=== PATIENT | female | born 1965 | race Caucasian/White ===

== ENCOUNTER 2017-07-13 08:44 | Inpatient (IN) | payer SELFPAY ==
[~2017-07-13] VITALS: Ht 170.2 cm; Wt 54.9 kg
[~2017-07-13 08:44] MED LIST: LEVA750T PO
[2017-07-13 08:45] VITALS: BP 143/74; PULSE 84; RESP 18; TEMP 98.2; O2SAT 100
[2017-07-13] MEDS ORDERED: ONDANSETRON HCL 4 MG/2 ML VIAL IV PUSH ONE (09:00)
[2017-07-13] MEDS ORDERED: HYDROmorphone HCL PF 2 MG/ML VIAL IV PUSH ONE ×2 (09:00→11:00)
--- NOTE | 2017-07-13 09:08 | PD ---
HPI Chief Complaint: Musculoskeletal Complaint Time Seen by Provider: 08:49 Travel History International Travel<30 days: No Contact w/Intl Traveler<30days: No Traveled to known affect area: No History of Present Illness HPI This 52-year-old female is complaining of back pain. She arrives by [facility]. She says she is not able to walk due to the pain. Pain is located in the left sacroiliac area and goes down the leg. It is aggravated by any movement. The pain is severe. There is no history of trauma. The pain started Tuesday while she was cleaning her house. She is not aware of fever. She does have a history of IV drug abuse. She says she has not used IV drugs for the past month but says she has used them within 2 months. She was admitted to the hospital in December 2015 with sepsis. Cultures at that time were positive for E. coli of the source was thought to be the urine. She is currently having her period. It has been heavier than usual. She does have a history of heavy periods. She denies trouble urinating. She is not aware of fever PFSH Past Medical History Anemia: Yes Anxiety: Yes Depression: Yes Heart Rhythm Problems: Yes ("THEY SAID I HAVE A HEART MURMUR") Cancer: No Cardiovascular Problems: No High Cholesterol: No Chest Pain: No Congestive Heart Failure: No Diabetes: No Diminished Hearing: No Endocrine: No Gastrointestinal Disorders: No Genitourinary: Yes Herniated Disk: Yes (LUMBAR) Hypertension: No Immune Disorder: No Implanted Vascular Access Dvce: No Musculoskeletal: Yes (HERNIATED DISC, CHRONIC BACK ISSUES) Neurologic: No Psychiatric: Yes (PTSD) Reproductive: Yes Respiratory: No Integumentary: Yes (SCABIES) Immunizations Current: No ?: Not : 3 Para: 3 Past Surgical History Section: Yes (2003) Gynecologic Surgery: Yes (C SECTION 2003) Tonsillectomy: Yes Other Surgery: Yes Social History Alcohol Use: Yes ("OCCASIONALLY") Tobacco Use: No (QUIT AGE 22) Substance Use: Yes Allergies-Medications (Allergen,Severity, Reaction): Coded Allergies: acetaminophen (Unverified Allergy, Severe, SWELLING, 07/13/17) propoxyphene (Unverified Allergy, Severe, SWELLING, 07/13/17) Reported Meds & Prescriptions Reported Meds & Active Scripts Active Levaquin 750 Mg Tab (Levofloxacin) 750 Mg Tab 750 Mg PO DAILY 14 Days Review of Systems General / Constitutional: No: Fever, Chills Eyes: No: Diploplia, Blurred Vision HENT: No: Headaches, Vertigo Cardiovascular: No: Chest Pain or Discomfort, Palpitations Respiratory: No: Cough, Shortness of Breath Gastrointestinal: No: Nausea, Vomiting Genitourinary: No: Frequency Musculoskeletal: No: Myalgias, Arthralgias Skin: No Rash, No Itching Physical Exam Narrative GENERAL: Well-developed female complaining of severe pain. SKIN: Focused skin assessment warm/dry. HEAD: Atraumatic. Normocephalic. EYES: Pupils equal and round. No scleral icterus. No injection or drainage. ENT: No nasal bleeding or discharge. Mucous membranes pink and moist. NECK: Trachea midline. No JVD. CARDIOVASCULAR: Regular rate and rhythm. No murmur appreciated. RESPIRATORY: No accessory muscle use. Clear to auscultation. Breath sounds equal bilaterally. GASTROINTESTINAL: Abdomen soft, non-tender, nondistended. Hepatic and splenic margins not palpable. MUSCULOSKELETAL: No obvious deformities. No clubbing. No cyanosis. No edema. Tenderness in the left sacroiliac area. She has a left leg flexed. She has pain with movement of the leg. She has good strength in plantar dorsiflexion. Sensation of the feet is intact. Patellar reflexes are equal NEUROLOGICAL: Awake and alert. No obvious cranial nerve deficits. Motor grossly within normal limits. Normal speech. PSYCHIATRIC: Appropriate mood and affect; insight and judgment normal. Data Data Last Documented VS Vital Signs Date Time Temp Pulse Resp B/P (MAP) Pulse Ox O2 Delivery O2 Flow Rate FiO2 07/13/17 09:06 18 07/13/17 08:45 98.2 84 143/74 (97) 100 Orders Orders Electrocardiogram (07/13/17 08:59) Complete Blood Count With Diff (07/13/17 08:59) Comprehensive Metabolic Panel (07/13/17 08:59) Prothrombin Time / Inr (Pt) (07/13/17 08:59) Act Partial Throm Time (Ptt) (07/13/17 08:59) C-Reactive Protein (Crp) (07/13/17 08:59) Urinalysis - C+S If Indicated (07/13/17 08:59) Westergren Sedimentation Rate (07/13/17 08:59) Magnesium (Mg) (07/13/17 08:59) Drug Screen, Random Urine (07/13/17 08:59) Mri L Spine W&W/O Contrast (07/13/17 ) Sodium Chlor 0.9% 1000 Ml Inj (Ns 1000 M (07/13/17 09:00) Ondansetron Inj (Zofran Inj) (07/13/17 09:00) Hydromorphone Pf Inj (Dilaudid Pf Inj) (07/13/17 09:00) Blood Culture (07/13/17 08:59) Hydromorphone Pf Inj (Dilaudid Pf Inj) (07/13/17 11:00) Gadodiamide Pf Inj (Omniscan Pf Inj) (07/13/17 11:32) Urine Culture (07/13/17 12:07) Chest, Single Ap (07/13/17 12:37) Labs Laboratory Tests Test 07/13/17 09:40 07/13/17 12:07 White Blood Count 12.2 TH/MM3 Red Blood Count 4.28 MIL/MM3 Hemoglobin 8.0 GM/DL Hematocrit 25.5 % Mean Corpuscular Volume 59.5 FL Mean Corpuscular Hemoglobin 18.7 PG Mean Corpuscular Hemoglobin Concent 31.4 % Red Cell Distribution Width 18.4 % Platelet Count 239 TH/MM3 Mean Platelet Volume 7.3 FL Neutrophils (%) (Auto) 77.3 % Lymphocytes (%) (Auto) 12.9 % Monocytes (%) (Auto) 8.9 % Eosinophils (%) (Auto) 0.3 % Basophils (%) (Auto) 0.6 % Neutrophils # (Auto) 9.4 TH/MM3 Lymphocytes # (Auto) 1.6 TH/MM3 Monocytes # (Auto) 1.1 TH/MM3 Eosinophils # (Auto) 0.0 TH/MM3 Basophils # (Auto) 0.1 TH/MM3 CBC Comment AUTO DIFF Differential Comment AUTO DIFF CONFIRMED Ovalocytes 1+ Erythrocyte Sedimentation Rate 53 mm/hr Prothrombin Time 10.8 SEC Prothromb Time International Ratio 1.1 RATIO Activated Partial Thromboplast Time 28.7 SEC Blood Urea Nitrogen 16 MG/DL Creatinine 0.60 MG/DL Random Glucose 93 MG/DL Total Protein 8.2 GM/DL Albumin 3.5 GM/DL Calcium Level 8.7 MG/DL Magnesium Level 2.0 MG/DL Alkaline Phosphatase 127 U/L Aspartate Amino Transf (AST/SGOT) 27 U/L Alanine Aminotransferase (ALT/SGPT) 23 U/L Total Bilirubin 0.4 MG/DL Sodium Level 136 MEQ/L Potassium Level 3.6 MEQ/L Chloride Level 103 MEQ/L Carbon Dioxide Level 21.3 MEQ/L Anion Gap 12 MEQ/L Estimat Glomerular Filtration Rate 105 ML/MIN C-Reactive Protein 9.44 MG/DL Urine Collection Type CLEAN CATCH Urine Color KENNETH Urine Turbidity SLIGHT Urine pH 7.0 Urine Specific [place] 1.026 Urine Protein 300 OR GREATER mg/dL Urine Glucose (UA) NEG mg/dL Urine Ketones 15 mg/dL Urine Occult Blood LARGE Urine Nitrite POS Urine Bilirubin NEG Urine Leukocyte Esterase NEG Urine RBC 20-24 /hpf Urine WBC 3-5 /hpf Urine Squamous Epithelial Cells 0-5 /hpf Urine Bacteria MANY /hpf Microscopic Urinalysis Comment CULTURE INDICATED Urine Collection Time 12:07 Urine Opiates Screen NEG Urine Barbiturates Screen NEG Urine Amphetamines Screen POS Urine Benzodiazepines Screen NEG Urine Cocaine Screen POS Urine Cannabinoids Screen NEG MDM Medical Decision Making Medical Screen Exam Complete: Yes Emergency Medical Condition: Yes Medical Record Reviewed: Yes Differential Diagnosis Differential includes spinal epidural abscess, herniated disc, exacerbation of back pain Narrative Course Patient does have history of IV drug abuse initially denied recent use. Her tox screen is positive for cocaine and amphetamines. Her hemoglobin is 8 with a white count of 12.2. Sed rate is 53 with a CRP of 9.4. Urine shows 20-24 white cells. An MRI was done to assess for possible epidural abscess and has been read as negative. There is no evidence of osteomyelitis, destructive bone lesions, disc herniation stenosis or foraminal. MRI appears to be allowed infectious cause of the pain. She is an IV drug user with elevation of her sed rate and CRP. Blood cultures are pending. I think admission pending results of cultures to assess for possible endocarditis Is warranted Diagnosis Primary Impression: Elevated sed rate Additional Impression: Rule out endocarditis Admitting Information Admitting Physician Requests: Observation Aneesh Scott MD Jul 13, 2017 09:08
[2017-07-13] MEDS: SODIUM CHLOR 0.9% 1000 ML INJ 1,000 ML IV SCH ×2 (09:43→20:40)
[2017-07-13 09:48] LABS: AUTOMATED NEUTROPHIL # 9.4 TH/MM3 (1.8-7.7); BASOPHIL # 0.1 TH/MM3 (0-0.2); BASOPHIL % 0.6 % (0.0-2.0); EOSINOPHIL % 0.3 % (0.0-4.0); HEMATOCRIT 25.5 % (35.0-46.0); LYMPH % 12.9 % (9.0-44.0); LYMPHOCYTE # 1.6 TH/MM3 (1.0-4.8); MEAN CELL VOLUME 59.5 FL (80.0-100.0); MEAN CORPUSCULAR HEMOGLOBIN 18.7 PG (27.0-34.0); MEAN CORPUSCULAR HGB CONC 31.4 % (32.0-36.0); MEAN PLATELET VOLUME 7.3 FL (7.0-11.0); MONO % 8.9 % (0.0-8.0); MONOCYTE # 1.1 TH/MM3 (0-0.9); NEUT % 77.3 % (16.0-70.0); PLATELET COUNT 239 TH/MM3 (150-450); RED BLOOD COUNT 4.28 MIL/MM3 (4.00-5.30); RED CELL DISTRIBUTION WIDTH 18.4 % (11.6-17.2); WHITE BLOOD COUNT 12.2 TH/MM3 (4.0-11.0)
[2017-07-13 10:04] LABS: INTERNATIONAL NORMALIZED RATIO 1.1 RATIO; PROTHROMBIN TIME - PATIENT 10.8 SEC (9.8-11.6)
[2017-07-13 10:25] LABS: CHLORIDE 103 MEQ/L (98-107); SODIUM (NA) 136 MEQ/L (136-145)
[2017-07-13 10:27] LABS: ALBUMIN 3.5 GM/DL (3.4-5.0); BICARBONATE 21.3 MEQ/L (21.0-32.0); CALCIUM 8.7 MG/DL (8.5-10.1)
[2017-07-13 10:28] LABS: GLUCOSE,RANDOM 93 MG/DL (74-106)
[2017-07-13 10:31] LABS: C-REACTIVE PROTEIN 9.44 MG/DL (0.00-0.30); GLOMERULAR FILTRATION RATE 105 ML/MIN (>89)
[2017-07-13 10:32] LABS: ALT (GPT) 23 U/L (10-53); TOTAL BILIRUBIN ADULT 0.4 MG/DL (0.2-1.0); TOTAL PROTEIN 8.2 GM/DL (6.4-8.2)
[2017-07-13 10:33] LABS: ALKALINE PHOSPHATASE 127 U/L (45-117)
[2017-07-13 10:40] LABS: AST (GOT) 27 U/L (15-37)
[2017-07-13 10:41] LABS: BLOOD UREA NITROGEN 16 MG/DL (7-18)
[2017-07-13 11:10] LABS: OVALOCYTES 1+ (NORMAL)
[2017-07-13] MEDS ORDERED: GADODIAMIDE PF 287 MG/ML 10 ML VIAL (for RAD MRI) IVCONTRAST ONE (11:32)
--- NOTE | 2017-07-13 12:08 | RADRPT ---
EXAM DATE/TIME: 07/13/2017 10:59 [facility] COMPARISON: No previous studies available for comparison. INDICATIONS : Osteomyelitis. Back pain radiating to left leg. CONTRAST: 10 cc Omniscan (gadodiamide) IV MEDICAL HISTORY : IVDU. SURGICAL HISTORY : section. ENCOUNTER: Subsequent ACUITY: 3 day PAIN SCORE: 10/10 LOCATION: back. TECHNIQUE: Multiplanar multisequence MRI of the lumbar spine was performed with and without contrast. FINDINGS: The most caudal appearing lumbar vertebra is numbered as L5. VERTEBRAE: Homogeneous signal. Mild anterolisthesis is noted of L3 on L4. Moderate hypertrophic facet arthropath y is identified at L3-4. No other significant arthropathy or malalignment is noted. CONUS: Normal level and configuration. POST CONTRAST: No abnormal areas of contrast enhancement are seen. T12-L1: The thecal sac has a normal diameter. No evidence of disc bulge or protrusion. The neural foramina are patent bilaterally. L1-L2: The thecal sac has a normal diameter. No evidence of disc bulge or protrusion. The neural foramina are patent bilaterally. L2-L3: Mild disc space narrowing with minimal annular bulging is noted. L3-L4: The thecal sac has a normal diameter. No evidence of disc bulge or protrusion. The neural foramina are patent bilaterally. L4-L5: The thecal sac has a normal diameter. No evidence of disc bulge or protrusion. The neural foramina are patent bilaterally. L5-S1: The thecal sac has a normal diameter. No evidence of disc bulge or protrusion. The neural foramina are patent bilaterally. CONCLUSION: 1. Mild degenerative listhesis at L3-4 secondary to facet arthropathy. 2. Minimal degenerative disc disease at L3-4 with mild annular bulging. 3. Otherwise normal unenhanced and enhanced evaluation of the lumbar spine. No evidence of osteomyeli tis, destructive bone lesions, disc herniation, bony stenosis or foraminal encroachment. Narayan Rivera MD on July 13, 2017 at 12:03 Board Certified Radiologist. This report was verified electronically.
[2017-07-13 12:16] LABS: BLOOD, URINE LARGE (NEG); GLUCOSE,URINE NEG (NEG); KETONE, URINE 15 mg/dL (NEG); NITRITE,URINE POS (NEG); URINE LEUKOCYTE ESTERASE NEG (NEG)
[2017-07-13 12:21] LABS: BILIRUBIN, URINE NEG (NEG)
[2017-07-13 12:22] LABS: URINE COLOR AMBER (YELLW/STRAW)
[2017-07-13 12:23] LABS: BACTERIA, URINE MANY /hpf; SQUAMOUS EPITHELIAL CELL URINE 0-5 /hpf (0-5)
--- NOTE | 2017-07-13 12:55 | RADRPT ---
EXAM DATE/TIME: 07/13/2017 12:38 [facility] COMPARISON: No previous studies available for comparison. INDICATIONS : Fever MEDICAL HISTORY : IVDU SURGICAL HISTORY : section. ENCOUNTER: Initial ACUITY: 1 day PAIN SCORE: 0/10 LOCATION: Bilateral chest FINDINGS: Portable AP view of the chest demonstrates a normal-sized cardiac silhouette with prominent main pulm onary artery. No pleural effusion, airspace consolidation, or pneumothorax is identified. The bones a nd soft tissues demonstrate no acute finding. CONCLUSION: No acute cardiopulmonary abnormality is identified. Saleem Beckwith MD on July 13, 2017 at 12:53 Board Certified Radiologist. This report was verified electronically.
[2017-07-13] MEDS ORDERED: VANCOMYCIN INJ 750 MG in SODIUM CHLOR 0.9% 250 ML INJ 250 ML IV ONE (13:15)
[2017-07-13] MEDS ORDERED: PIPERACIL-TAZO 4.5 GM PREMIX 100 ML IV ONE (13:15)
[2017-07-13 13:40] VITALS: BP 134/74; PULSE 90; RESP 20; TEMP 99.2; O2SAT 100
[2017-07-13 13:41] VITALS: BP 117/55; PULSE 87; RESP 18; O2SAT 100
[2017-07-13] MEDS: LIDOCAINE HCL 5% PATCH T-DERMAL SCH (15:00)
[2017-07-13] MEDS ORDERED: NAPROXEN 500 MG TAB PO ONE (15:30)
--- NOTE | 2017-07-13 15:44 | HHI.HP ---
[facility] No Primary Care Physician Admission Diagnosis SEPSIS Diagnoses: Chief Complaint: back pain Travel History International Travel<30 Days: No Contact w/Intl Traveler <30 Da: No Traveled to Known Affected Are: No History of Present Illness 52-year-old white female being admitted for possible sepsis Patient was in usual state of health until 2 days ago when she was unloading her current house when she began experiencing left-sided back pain with a gradual onset. The pain worsened over time and is now become quite unbearable. She has trouble walking due to the pain. Says the pain goes down to her knee. Denies any trouble urinating or defecating. Her friend has given her for Goody powders over 4 days as well as Excedrin and ibuprofen to minimal avail. Patient claims that she has been trying conservative measures including ice and heat. The patient does admit that she did have a friend come over and she used illicit drugs, namely cocaine. In the emergency department she was found to have a white count of 12 and tachycardic. Lumbar MRI was performed in the ER which does not show any discitis or any acutely herniating disc. Review of Systems Except as stated in HPI: all other systems reviewed are Neg Past Family Social History Past Medical History Urinary tract infection Allergies: Coded Allergies: acetaminophen (Unverified Allergy, Severe, SWELLING, 07/13/17) propoxyphene (Unverified Allergy, Severe, SWELLING, 07/13/17) Family History Hypertension Social History History of IV drug use, currently moving from house to a camper, has children and grandchildren Physical Exam Vital Signs Vital Signs Date Time Temp Pulse Resp B/P (MAP) Pulse Ox O2 Delivery O2 Flow Rate FiO2 07/13/17 13:43 07/13/17 13:41 87 18 117/55 (75) 100 Room Air 07/13/17 13:40 99.2 90 20 134/74 (94) 100 07/13/17 09:06 18 07/13/17 08:45 98.2 84 18 143/74 (97) 100 Physical Exam VS: afebrile GENERAL: Lying in bed, in acute distress secondary to pain but is easily distracted during our conversation SKIN: Warm and dry. EYES: No scleral icterus. No injection or drainage. ENT: NC/AT CARDIOVASCULAR: Regular rate and rhythm. 2/6 ejection murmur RESPIRATORY: No accessory muscle use. Clear to auscultation. Breath sounds equal bilaterally. GASTROINTESTINAL: Abdomen soft, non-tender, nondistended. Extremities: No clubbing, cyanosis, or edema. No obvious deformities. MUSCULOSKELETAL: adequate muscle bulk and tone for age and habitus. intact straight leg raise BL. has exquisite left sided TTP NEUROLOGICAL: Awake and alert. No obvious cranial nerve deficits. No facial droop nor slurred speech noted. PSYCHIATRIC: Appropriate mood and affect; insight and judgment normal. Laboratory Laboratory Tests Test 07/13/17 09:40 07/13/17 12:07 White Blood Count 12.2 Red Blood Count 4.28 Hemoglobin 8.0 Hematocrit 25.5 Mean Corpuscular Volume 59.5 Mean Corpuscular Hemoglobin 18.7 Mean Corpuscular Hemoglobin Concent 31.4 Red Cell Distribution Width 18.4 Platelet Count 239 Mean Platelet Volume 7.3 Neutrophils (%) (Auto) 77.3 Lymphocytes (%) (Auto) 12.9 Monocytes (%) (Auto) 8.9 Eosinophils (%) (Auto) 0.3 Basophils (%) (Auto) 0.6 Neutrophils # (Auto) 9.4 Lymphocytes # (Auto) 1.6 Monocytes # (Auto) 1.1 Eosinophils # (Auto) 0.0 Basophils # (Auto) 0.1 CBC Comment AUTO DIFF Differential Comment AUTO DIFF CONFIRMED Ovalocytes 1+ Erythrocyte Sedimentation Rate 53 Prothrombin Time 10.8 Prothromb Time International Ratio 1.1 Activated Partial Thromboplast Time 28.7 Blood Urea Nitrogen 16 Creatinine 0.60 Random Glucose 93 Total Protein 8.2 Albumin 3.5 Calcium Level 8.7 Magnesium Level 2.0 Alkaline Phosphatase 127 Aspartate Amino Transf (AST/SGOT) 27 Alanine Aminotransferase (ALT/SGPT) 23 Total Bilirubin 0.4 Sodium Level 136 Potassium Level 3.6 Chloride Level 103 Carbon Dioxide Level 21.3 Anion Gap 12 Estimat Glomerular Filtration Rate 105 C-Reactive Protein 9.44 Urine Collection Type CLEAN CATCH Urine Color KENNETH Urine Turbidity SLIGHT Urine pH 7.0 Urine Specific [place] 1.026 Urine Protein 300 OR GREATER Urine Glucose (UA) NEG Urine Ketones 15 Urine Occult Blood LARGE Urine Nitrite POS Urine Bilirubin NEG Urine Leukocyte Esterase NEG Urine RBC 20-24 Urine WBC 3-5 Urine Squamous Epithelial Cells 0-5 Urine Bacteria MANY Microscopic Urinalysis Comment CULTURE INDICATED Urine Collection Time 12:07 Urine Opiates Screen NEG Urine Barbiturates Screen NEG Urine Amphetamines Screen POS Urine Benzodiazepines Screen NEG Urine Cocaine Screen POS Urine Cannabinoids Screen NEG Date/Time Source Procedure Growth Status 07/13/17 09:40 Blood Peripheral Aerobic Blood Culture Pending Received 07/13/17 09:40 Blood Peripheral Anaerobic Blood Culture Pending Received 07/13/17 12:07 Urine Clean Catch Urine Culture Pending Received Result Diagram: 07/13/17 0940 07/13/17 0940 Imaging Last Impressions Chest X-Ray 07/13/17 1237 Signed Impressions: Service Date/Time: Thursday, July 13, 2017 12:38 - CONCLUSION: No acute cardiopulmonary abnormality is identified. Saleem Beckwith MD Lumbar Spine MRI 07/13/17 0000 Signed Impressions: Service Date/Time: Thursday, July 13, 2017 10:59 - CONCLUSION: 1. Mild degenerative listhesis at L3-4 secondary to facet arthropathy. 2. Minimal degenerative disc disease at L3-4 with mild annular bulging. 3. Otherwise normal unenhanced and enhanced evaluation of the lumbar spine. No evidence of osteomyelitis, destructive bone lesions, disc herniation, bony stenosis or foraminal encroachment. MD Pablo Edwardsi VTE Risk Assessment Caprini VTE Risk Assessment: Mod/High Risk (score >= 2) Caprini Risk Assessment Model Point Value = 1 Point Value = 2 Point Value = 3 Point Value = 5 Age 41-60 Minor surgery BMI > 25 kg/m2 Swollen legs Varicose veins or History of unexplained or recurrent spontaneous Oral contraceptives or hormone replacement Sepsis (< 1 month) Serious lung disease, including pneumonia (< 1 month) Abnormal pulmonary function Acute myocardial infarction Congestive heart failure (< 1 month) History of inflammatory bowel disease Medical patient at bed rest Age 61-74 Arthroscopic surgery Major open surgery (> 45 min) Laparoscopic surgery (> 45 min) Malignancy Confined to bed (> 72 hours) Immobilizing plaster cast Central venous access Age >= 75 History of VTE Family history of VTE Factor V Leiden Prothrombin [id number] Lupus anticoagulant Anticardiolipin antibodies Elevated serum homocysteine Heparin-induced thrombocytopenia Other congenital or acquired thrombophilia Stroke (< 1 month) Elective arthroplasty Hip, pelvis, or leg fracture Acute spinal cord injury (< 1 month) Prophylaxis Regimen Total Risk Factor Score Risk Level Prophylaxis Regimen 0-1 Low Early ambulation 2 Moderate Order ONE of the following: *Sequential Compression Device (SCD) *Heparin 5000 units SQ BID 3-4 Higher Order ONE of the following medications: *Heparin 5000 units SQ TID *Enoxaparin/Lovenox 40 mg SQ daily (WT < 150 kg, CrCl > 30 mL/min) *Enoxaparin/Lovenox 30 mg SQ daily (WT < 150 kg, CrCl > 10-29 mL/min) *Enoxaparin/Lovenox 30 mg SQ BID (WT < 150 kg, CrCl > 30 mL/min) AND/OR *Sequential Compression Device (SCD) 5 or more Highest Order ONE of the following medications: *Heparin 5000 units SQ TID (Preferred with Epidurals) *Enoxaparin/Lovenox 40 mg SQ daily (WT < 150 kg, CrCl > 30 mL/min) *Enoxaparin/Lovenox 30 mg SQ daily (WT < 150 kg, CrCl > 10-29 mL/min) *Enoxaparin/Lovenox 30 mg SQ BID (WT < 150 kg, CrCl > 30 mL/min) AND *Sequential Compression Device (SCD) Assessment and Plan Assessment and Plan 52-year-old white female being admitted for intractable back pain with possible sepsis Intractable back pain - Most likely musculoskeletal in origin given history with no acute neurological deficits; conservative measures including ice/heat/physical therapy /NSAIDS/lidocaine patch. MRI showing mild disc bulging at best with some listhesis. No evidence of discitis. IV drug use - Check blood cultures given leukocytosis and recent drug use. Given lack of fevers I will hold off on antibiotic use at this time, already status post vancomycin and Zosyn in emergency department. Will recheck CBC in a.m. CRP and Sed rate elevated, trend. echo in am given soft murmur Leukocytosis -Most likely due to stress secondary to pain, I do not feel this is truly elevated due to infection , repeat cbc in am. Independently reviewed the cxr which shows no acute infiltrates elevated alk phos -Unclear source, unlikely liver, with CRP and SED elevated, trend all three in AM. for now. If persistently elevated, will need further workup Anemia - likely iron def, obtain iron levels, replenish accordingly SCDs Physician Certification 2 Midnight Certification Type: Admission for Inpatient Services Order for Inpatient Services The services are ordered in accordance with Medicare regulations or non- Medicare payer requirements, as applicable. In the case of services not specified as inpatient-only, they are appropriately provided as inpatient services in accordance with the 2-midnight benchmark. Estimated LOS (days): 2 2 days is the estimated time the patient will need to remain in the hospital, assuming treatment plan goals are met and no additional complications. Post-Hospital Plan: Home Sami Dillard MD Jul 13, 2017 15:44
[2017-07-13] MEDS ORDERED: KETOROLAC TROMETHAMINE 30 MG/ML (IVP) VIAL IV PUSH PRN (15:45)
[2017-07-13 15:50] VITALS: BP 122/61; PULSE 95; RESP 20; TEMP 100; O2SAT 98
[2017-07-13 20:00] VITALS: BP 102/61; PULSE 79; RESP 18; TEMP 97.1; O2SAT 99
[2017-07-14] VITALS: BP 103/60; PULSE 79; RESP 18; TEMP 97.6; O2SAT 100
[2017-07-14] MEDS: KETOROLAC TROMETHAMINE 30 MG/ML (IVP) VIAL IV PUSH PRN ×2 (04:30→14:59)
[2017-07-14] MEDS: SODIUM CHLOR 0.9% 1000 ML INJ 1,000 ML IV SCH ×3 (05:01→17:00)
[2017-07-14 06:06] LABS: AUTOMATED NEUTROPHIL # 4.6 TH/MM3 (1.8-7.7); BASOPHIL % 0.3 % (0.0-2.0); EOSINOPHIL # 0.1 TH/MM3 (0-0.4); EOSINOPHIL % 1.9 % (0.0-4.0); HEMATOCRIT 27.1 % (35.0-46.0); HEMOGLOBIN 7.7 GM/DL (11.6-15.3); LYMPHOCYTE # 1.2 TH/MM3 (1.0-4.8); MEAN CELL VOLUME 60.9 FL (80.0-100.0); MEAN CORPUSCULAR HEMOGLOBIN 17.2 PG (27.0-34.0); MEAN PLATELET VOLUME 7.9 FL (7.0-11.0); MONO % 8.8 % (0.0-8.0); MONOCYTE # 0.6 TH/MM3 (0-0.9); PLATELET COUNT 209 TH/MM3 (150-450); RED BLOOD COUNT 4.46 MIL/MM3 (4.00-5.30); RED CELL DISTRIBUTION WIDTH 19.1 % (11.6-17.2); WHITE BLOOD COUNT 6.5 TH/MM3 (4.0-11.0)
[2017-07-14 06:09] LABS: MEAN CORPUSCULAR HGB CONC 28.3 % (32.0-36.0)
[2017-07-14 06:25] LABS: C-REACTIVE PROTEIN 9.18 MG/DL (0.00-0.30)
[2017-07-14 07:22] LABS: KERATOCYTES 1+ (NORMAL); OVALOCYTES 2+ (NORMAL); TEARDROP RBCS 1+ (NORMAL)
[2017-07-14 07:56] VITALS: BP 106/55; PULSE 78; RESP 18; TEMP 98.1; O2SAT 98
[2017-07-14] MEDS: NAPROXEN 250 MG TAB PO PRN (08:58)
[2017-07-14] MEDS: LIDOCAINE HCL 5% PATCH T-DERMAL SCH (08:58)
--- NOTE | 2017-07-14 09:39 | EKG ---
Date Performed: 07/13/2017 Time Performed: 09:13:47 PTAGE: 52 years EKG: Sinus rhythm NORMAL ECG Since the prior tracing, there has been no significant change PREVIOUS TRACING : 01/15/2016 17.20 DOCTOR: Benny Barth Interpretating Date/Time 07/14/2017 09:37:23
[2017-07-14 12:00] VITALS: BP 108/57; PULSE 90; RESP 18; TEMP 97.5; O2SAT 98
[2017-07-14] MEDS ORDERED: Vancomycin Consult Pharmacy 1 EA OTHER SCH (12:00)
[2017-07-14] MEDS: VANCOMYCIN INJ 1,250 MG in SODIUM CHLOR 0.9% 250 ML INJ 250 ML IV SCH (15:00)
[2017-07-14] MEDS: PIPERACIL-TAZO 3.375 GM PREMIX 50 ML IV SCH ×2 (15:00→20:24)
[2017-07-14 15:36] VITALS: BP 103/66; PULSE 78; RESP 18; TEMP 98; O2SAT 100
--- NOTE | 2017-07-14 15:44 | HHI.PR ---
Subjective Remarks Nursing reports patient had been complaining of some pain. On my exam patient says that she feels better than yesterday. Does report some lower abdominal pain today. Patient does affirm that this entire month she has been vaginally bleeding daily. Denies melena or BRPR. Objective Vital Signs Date Time Temp Pulse Resp B/P (MAP) Pulse Ox O2 Delivery O2 Flow Rate FiO2 07/14/17 12:00 97.5 90 18 108/57 (74) 98 07/14/17 07:56 98.1 78 18 106/55 (72) 98 07/14/17 00:00 97.6 79 18 103/60 (74) 100 07/13/17 20:00 97.1 79 18 102/61 (75) 99 07/13/17 15:50 100.0 95 20 122/61 (81) 98 I/O 07/13/17 07/13/17 07/13/17 07/14/17 07/14/17 07/14/17 07:00 15:00 23:00 07:00 15:00 23:00 Intake Total 450 ml 1357 ml 1480 ml 240 ml Balance 450 ml 1357 ml 1480 ml 240 ml Intake Oral 480 ml 240 ml IV Total 450 ml 1357 ml 1000 ml # Voids 3 1 # Bowel Movements 0 1 Result Diagram: 07/14/17 0455 07/13/17 0940 Objective Remarks 3 out of 6 ejection murmur, heart sounds are regular rate rhythm Clear lungs bilaterally, suprapubic tenderness to palpation, lying in bed, no acute distress, awake, alert, grossly intact range of motion of all 4 extremities including lower extremities bilaterally A/P Assessment and Plan 52-year-old white female being admitted for intractable back pain with possible sepsis Intractable back pain - Most likely musculoskeletal in origin given history with no acute neurological deficits; conservative measures including ice/heat/physical therapy /NSAIDS/lidocaine patch. MRI showing mild disc bulging at best with some listhesis. Given numerous WBC on UA as well as anemia from heavy bleeding, will obtain CT abd/pelvis w/ contrast to eval for pyelo and/or source of bleeding. will administer 1x dose of Decadron. UTI - enterbacter noted in blood and urine, continue abx of Zosyn and vancomycin for now , f/u CT abd/pelvis to see if pyelo is present IV drug use - CRP and sed rate still elevated, echo pending, continue abx for now elevated alk phos -still elevated, trend, f/u CT abd/pelvis Anemia - consider transvag US based upon CT abd/pelvis results, trend daily, ordering stool hemoccults Sami Woodson MD Jul 14, 2017 15:44
[2017-07-14] MEDS ORDERED: DEXAMETHASONE SOD PHOS 4 MG/ML VIAL IV PUSH ONE (16:30)
[2017-07-14] MEDS ORDERED: DIATRIZOATE MEGLUM/DIATRIZOATE SOD 9 ML CUP PO ONE (17:15)
[2017-07-14 20:00] VITALS: BP 110/60; PULSE 78; RESP 18; TEMP 96.7; O2SAT 99
[2017-07-14] MEDS ORDERED: IOHEXOL 350 MG/ML 10 ML VIAL (for RAD DIAG) IVCONTRAST ONE (21:47)
--- NOTE | 2017-07-14 22:02 | RADRPT ---
EXAM DATE/TIME: 07/14/2017 21:30 [facility] COMPARISON: CT ABDOMEN & PELVIS W/O CONTRAST, January 14, 2016, 18:18. INDICATIONS : Abdominal cramping and back pain IV CONTRAST: 95 cc Omnipaque 350 (iohexol) IV ORAL CONTRAST: Prescribed oral contrast ingested. RADIATION DOSE: 5.01 CTDIvol (mGy) MEDICAL HISTORY : Cardiovascular disease. SURGICAL HISTORY : section. ENCOUNTER: Initial ACUITY: 3 days PAIN SCALE: 7/10 LOCATION: low abdomen TECHNIQUE: Volumetric scanning of the abdomen and pelvis was performed. Using automated exposure control and ad justment of the mA and/or kV according to patient size, radiation dose was kept as low as reasonably achievable to obtain optimal diagnostic quality images. DICOM format image data is available electro nically for review and comparison. FINDINGS: LOWER LUNGS: The visualized lower lungs are clear. LIVER: Two low density lesions are noted within the liver parenchyma with the larger measuring 18 mm. The la rger of the 2 likely represents a hepatic cyst. The smaller lesion is too small for accurate density measurements are MRI of the abdomen with contrast as an outpatient could be performed for further jose luation the smaller lesion if clinically indicated. No biliary ductal dilatation is noted. The gallbl adder is collapsed. SPLEEN: The spleen is enlarged. PANCREAS: Within normal limits. KIDNEYS: Normal in size and shape. There is no mass, stone or hydronephrosis. ADRENAL GLANDS: Within normal limits. VASCULAR: There is no aortic aneurysm. BOWEL/MESENTERY: The stomach, small bowel, and colon demonstrate no acute abnormality. There is no free intraperitone al air or fluid. ABDOMINAL WALL: Within normal limits. RETROPERITONEUM: There is no lymphadenopathy. BLADDER: No wall thickening or mass. REPRODUCTIVE: The uterus is prominent and the endometrium is thickened. Postmenopausal bleeding should be ruled out if this patient is postmenopausal. Some free fluid is noted within the cul-de-sac. INGUINAL: There is no lymphadenopathy or hernia. MUSCULOSKELETAL: Within normal limits for patient age. CONCLUSION: 1. Prominent uterus with possible endometrial thickening. If this patient is postmenopausal, postmeno pausal bleeding should be ruled out. 2. Some free fluid within the cul-de-sac. 3. Splenomegaly. 4. Two low density lesions are noted within the liver parenchyma with the larger measuring 18 mm. The larger of the 2 likely represents a hepatic cyst. The smaller lesion is too small for accurate densi ty measurements are MRI of the abdomen with contrast as an outpatient could be performed for further evaluation the smaller lesion if clinically indicated. Mario Miguel MD on July 14, 2017 at 21:54 Board Certified Radiologist. This report was verified electronically.
[2017-07-15] VITALS: BP 113/61; PULSE 80; RESP 16; TEMP 97.6; O2SAT 98
[2017-07-15] MEDS: SODIUM CHLOR 0.9% 1000 ML INJ 1,000 ML IV SCH ×3 (01:00→17:10)
[2017-07-15] MEDS: VANCOMYCIN INJ 1,250 MG in SODIUM CHLOR 0.9% 250 ML INJ 250 ML IV SCH ×2 (01:23→14:41)
[2017-07-15] MEDS: PIPERACIL-TAZO 3.375 GM PREMIX 50 ML IV SCH ×4 (01:23→20:05)
[2017-07-15 07:02] LABS: C-REACTIVE PROTEIN 5.38 MG/DL (0.00-0.30)
[2017-07-15 08:00] VITALS: BP 131/64; PULSE 74; RESP 14; TEMP 97.7; O2SAT 99
[2017-07-15] MEDS: LIDOCAINE HCL 5% PATCH T-DERMAL SCH (08:03)
[2017-07-15] MEDS: NAPROXEN 250 MG TAB PO PRN (08:03)
[2017-07-15] MEDS: KETOROLAC TROMETHAMINE 30 MG/ML (IVP) VIAL IV PUSH PRN ×2 (08:42→17:10)
[2017-07-15 12:00] VITALS: BP 125/73; PULSE 74; RESP 16; TEMP 96; O2SAT 99
[2017-07-15] MEDS: ALPRAZolam 0.5 MG TAB PO PRN ×2 (12:03→20:03)
--- NOTE | 2017-07-15 12:53 | HHI.PR ---
Subjective Remarks Patient seen and evaluated today in follow-up for back pain, UTI with sepsis. Patient's blood culture positive for Enterobacter. Patient also had UTI. This is concerning to the patient's IV drug use. She continues to tolerate Zosyn without difficulty. She still complaining of severe back pain however on the left. Objective Vitals Vital Signs Date Time Temp Pulse Resp B/P (MAP) Pulse Ox O2 Delivery O2 Flow Rate FiO2 07/15/17 08:00 97.7 74 14 131/64 (86) 99 07/15/17 00:00 97.6 80 16 113/61 (78) 98 07/14/17 20:00 96.7 78 18 110/60 (77) 99 07/14/17 15:59 20 07/14/17 15:36 98.0 78 18 103/66 (78) 100 I/O 07/14/17 07/14/17 07/14/17 07/15/17 07/15/17 07/15/17 06:59 14:59 22:59 06:59 14:59 22:59 Intake Total 1480 ml 240 ml 1750 ml 358 ml Balance 1480 ml 240 ml 1750 ml 358 ml Intake Oral 480 ml 240 ml 358 ml IV Total 1000 ml 1750 ml # Voids 3 1 2 # Bowel Movements 0 1 1 Result Diagram: 07/14/17 0455 07/13/17 0940 Imaging Last Impressions Abdomen/Pelvis CT 07/14/17 0000 Signed Impressions: Service Date/Time: July 21:30 - CONCLUSION: 1. Prominent uterus with possible endometrial thickening. If this patient is postmenopausal , postmenopausal bleeding should be ruled out. 2. Some free fluid within the cul-de-sac. 3. Splenomegaly. 4. Two low density lesions are noted within the liver parenchyma with the larger measuring 18 mm. The larger of the 2 likely represents a hepatic cyst. The smaller lesion is too small for accurate density measurements are MRI of the abdomen with contrast as an outpatient could be performed for further evaluation the smaller lesion if clinically indicated. Mario Miguel MD Chest X-Ray 07/13/17 1237 Signed Impressions: Service Date/Time: Thursday, July 13, 2017 12:38 - CONCLUSION: No acute cardiopulmonary abnormality is identified. Saleem Beckwith MD Lumbar Spine MRI 07/13/17 0000 Signed Impressions: Service Date/Time: Thursday, July 13, 2017 10:59 - CONCLUSION: 1. Mild degenerative listhesis at L3-4 secondary to facet arthropathy. 2. Minimal degenerative disc disease at L3-4 with mild annular bulging. 3. Otherwise normal unenhanced and enhanced evaluation of the lumbar spine. No evidence of osteomyelitis, destructive bone lesions, disc herniation, bony stenosis or foraminal encroachment. Narayan Rivera MD Procedures none A/P Problem List: (1) Severe sepsis ICD Code: A41.9 - Sepsis, unspecified organism; R65.20 - Severe sepsis without septic shock Status: Acute Plan: Sepsis (Fever, leukocytosis) secondary to E. coli UTI and Enterobacter bacteremia We will follow-up with infectious disease team Continue IV Zosyn for now and follow-up sensitivities Repeat blood cultures are pending clinically improved but still complaining of left-sided back pain. MRI is not consistent with abscess. Follow-up echocardiogram (2) Menorrhagia ICD Code: N92.0 - Excessive and frequent menstruation with regular cycle Plan: Abnormal uterus on imaging, unlikely to be malignant at this point and appears to be chronic for the last 6 months, patient also with iron deficiency anemia Continue recommendation for outpatient follow-up ( A3) Macarena Cartagena MD Jul 15, 2017 12:53
--- NOTE | 2017-07-15 14:41 | ECHRPT ---
Indication: SEPSIS POSS. ENDOCARDITIS CONCLUSIONS The left ventricular systolic function is hyperdynamic with an estimated ejection fraction in the ra nge of 65- 70%. Normal left ventricular size. Wall thickness is normal. No regional wall motion abnormalities are present. Mild thickening of the mitral valve leaflets. Nqiop-ly-uhzh mitral valve regurgitation. Trace aortic valve regurgitation. There is at least moderate tricuspid valve regurgitation. The estimated pulmonary arterial pressure is 51.5 mmHg. BP: 113 / 61 HR: 78 Rhythm: Sinus MEASUREMENTS (Male / Female) Normal Values Technical Quality:Good 2D ECHO LV Diastolic Diameter PLAX 4.6 cm 4.2 - 5.9 / 3.9 - 5.3 cm LV Systolic Diameter PLAX 2.9 cm IVS Diastolic Thickness 1.1 cm 0.6 - 1.0 / 0.6 - 0.9 cm LVPW Diastolic Thickness 1.0 cm 0.6 - 1.0 / 0.6 - 0.9 cm LV Relative Wall Thickness 0.5 RV Internal Dim ED PLAX 2.2 cm LVOT Diameter 1.8 cm LA Systolic Diameter LX 2.9 cm 3.0 - 4.0 / 2.7 - 3.8 cm M-MODE Aortic Root Diameter MM 2.5 cm LA Systolic Diameter MM 3.1 cm LA Ao Ratio MM 1.2 AV Cusp Separation MM 2.1 cm DOPPLER AV Peak Velocity 172.0 cm/s AV Peak Gradient 11.8 mmHg AI Peak Velocity 305.0 cm/s AI Peak Gradient 37.2 mmHg AI Pressure Half Time 740.0 ms LVOT Peak Velocity 143.0 cm/s LVOT Peak Gradient 8.2 mmHg AV Area Cont Eq pk 2.1 cm MV Area PHT 4.5 cm Mitral E Point Velocity 98.7 cm/s Mitral A Point Velocity 79.5 cm/s Mitral E to A Ratio 1.2 LV E' Lateral Velocity 12.8 cm/s Mitral E to LV E' Lateral Ratio 7.7 LV E' Septal Velocity 7.4 cm/s Mitral E to LV E' Septal Ratio 13.3 TR Peak Velocity 322.0 cm/s TR Peak Gradient 41.5 mmHg Right Atrial Pressure 10.0 mmHg Pulmonary Artery Systolic Pressu 51.5 mmHg Right Ventricular Systolic Press 51.5 mmHg PV Peak Velocity 92.3 cm/s PV Peak Gradient 3.4 mmHg FINDINGS LEFT VENTRICLE The left ventricular systolic function is hyperdynamic with an estimated ejection fraction in the ra nge of 65- 70%. Normal left ventricular size. Wall thickness is normal. No regional wall motion abnormalities are present. RIGHT VENTRICLE Normal right ventricular size and systolic function. LEFT ATRIUM The left atrial size is normal. RIGHT ATRIUM The right atrial size is normal. ATRIAL SEPTUM Normal atrial septal thickness without atrial level shunting by limited color doppler interrogation. AORTA The aortic root and proximal ascending aorta are normal in size on limited imaging. MITRAL VALVE Mild thickening of the mitral valve leaflets. Qhnac-dz-umno mitral valve regurgitation. AORTIC VALVE Trileaflet aortic valve. Trace aortic valve regurgitation. TRICUSPID VALVE Structurally normal tricuspid valve. There is mild to moderate tricuspid valve regurgitation. The estimated pulmonary arterial pressure is 51.5 mmHg. PULMONARY VALVE No pulmonary valve regurgitation or stenosis. VESSELS The inferior vena cava is normal in size. PERICARDIUM No pericardial effusion. Duncan Cordero MD, FACC, [facility] (Electronically Signed) Final Date:15 July 2017 14:39
[2017-07-15 16:00] VITALS: BP 125/66; PULSE 77; RESP 14; TEMP 97.6; O2SAT 100
[2017-07-15 20:00] VITALS: BP 119/70; PULSE 84; RESP 20; TEMP 98; O2SAT 99
[2017-07-15] MEDS: REMOVE OLD LIDOCAINE PATCH T-DERMAL SCH (20:07)
[2017-07-16] VITALS (9 sets, daily range): BP systolic 122–151; BP diastolic 65–89; PULSE 73–91; RESP 15–21; TEMP 96.1–98.7; O2SAT 98–100
[2017-07-16] MEDS: PIPERACIL-TAZO 3.375 GM PREMIX 50 ML IV SCH ×3 (01:39→13:52)
[2017-07-16] MEDS: VANCOMYCIN INJ 1,250 MG in SODIUM CHLOR 0.9% 250 ML INJ 250 ML IV SCH (01:40)
[2017-07-16] MEDS ORDERED: PHARMACY ORDERED LAB ONE (01:45)
[2017-07-16] MEDS: KETOROLAC TROMETHAMINE 30 MG/ML (IVP) VIAL IV PUSH PRN ×3 (01:47→18:24)
[2017-07-16] MEDS: SODIUM CHLOR 0.9% 1000 ML INJ 1,000 ML IV SCH ×2 (01:50→09:00)
[2017-07-16] MEDS: LIDOCAINE HCL 5% PATCH T-DERMAL SCH (09:07)
--- NOTE | 2017-07-16 11:36 | HHI.PR ---
Subjective Remarks Patient seen and evaluated today in follow-up for bacteremia, urinary tract infection and anemia likely due to menorrhagia. Patient complaining of dizziness and fatigue. Hemoglobin 7.7 today. Echocardiogram within normal limits Objective Vitals Vital Signs Date Time Temp Pulse Resp B/P (MAP) Pulse Ox O2 Delivery O2 Flow Rate FiO2 07/16/17 08:58 97.3 77 18 122/65 (84) 98 07/16/17 02:47 18 07/16/17 00:00 97.1 76 20 151/67 (95) 98 07/15/17 20:00 98.0 84 20 119/70 (86) 99 07/15/17 16:00 97.6 77 14 125/66 (85) 100 07/15/17 12:00 96.0 74 16 125/73 (90) 99 I/O 07/15/17 07/15/17 07/15/17 07/16/17 07/16/17 07/16/17 07:00 15:00 23:00 07:00 15:00 23:00 Intake Total 942.5 ml 1484.5 ml 120 ml Balance 942.5 ml 1484.5 ml 120 ml Intake Oral 580 ml 222 ml 120 ml IV Total 362.5 ml 1262.5 ml # Voids 7 1 # Bowel Movements 1 0 Result Diagram: 07/14/17 0455 07/13/17 0940 Procedures none A/P Problem List: (1) Severe sepsis ICD Code: A41.9 - Sepsis, unspecified organism; R65.20 - Severe sepsis without septic shock Status: Acute Plan: Sepsis (Fever, leukocytosis) secondary to E. coli UTI and Enterobacter bacteremia We will follow-up with infectious disease team Continue IV Zosyn based on current sensitivities, DC vancomycin Repeat blood cultures are pending clinically improved but still complaining of left-sided back pain. MRI is not consistent with abscess. Echocardiogram within normal limits (2) Menorrhagia ICD Code: N92.0 - Excessive and frequent menstruation with regular cycle Plan: Abnormal uterus on imaging, unlikely to be malignant at this point and appears to be chronic for the last 6 months, patient also with iron deficiency anemia Continue recommendation for outpatient follow-up ( A3) hemoglobin 7.7 today with symptoms of fatigue and dizziness, will transfuse 1 unit packed red blood cells Macarena Cartagena MD Jul 16, 2017 11:36
[2017-07-16] MEDS ORDERED: SODIUM CHLOR 0.9% 250 ML INJ 250 ML IV ONE (11:45)
--- NOTE | 2017-07-16 20:14 | PD.ID.CON ---
History of Present Illness Service ID Consult Requested By Dr Cartagena Reason for Consult bactermia Primary Care Physician No Primary Care Physician Diagnoses: History of Present Illness 52 yo female with chroic low back pain and uterine bleeding presented with severe back pain 4 days ago She developped L side pain and inability to walk MRI l spine was negative for diskitis, osteo, just showed DJD On presentation fever, leukocytosis up to 12K was noted UA has blood but no pyuria Urine clx + for E.coli She was found to have Enterobacter in blood clx [address] showed thickend endomethrium Pt reports heavy vaginal bleeding x 1 month She was prominent mycrocytic anemai with Hb of 8 and MCV of 59 Review of Systems Genitourinary: COMPLAINS OF: Abnormal vaginal bleeding Musculoskeletal: COMPLAINS OF: Back pain Except as stated in HPI: all other systems reviewed are Neg Past Family Social History Allergies: Coded Allergies: acetaminophen (Unverified Allergy, Severe, SWELLING, 07/13/17) propoxyphene (Unverified Allergy, Severe, SWELLING, 07/13/17) Past Medical History Urinary tract infection Abnormal uterine bleeding Past Surgical History C section Active Ordered Medications Medications where reviewed in EMR Antibiotics Include: zosyn vanco- stopped Family History reviewed non contributory Social History History of IV drug use, currently moving from house to a camper, has children and grandchildren Pt denies to me IVDU Remote toabcco occasional ETOH Physical Exam Vital Signs Vital Signs Date Time Temp Pulse Resp B/P (MAP) Pulse Ox O2 Delivery O2 Flow Rate FiO2 07/16/17 18:34 98.5 73 16 136/89 (105) 98 07/16/17 17:29 98.5 74 21 130/89 98 07/16/17 13:03 96.1 73 15 129/75 (93) 99 07/16/17 08:58 97.3 77 18 122/65 (84) 98 07/16/17 02:47 18 07/16/17 00:00 97.1 76 20 151/67 (95) 98 07/15/17 20:00 98.0 84 20 119/70 (86) 99 Physical Exam CONSTITUTIONAL/GENERAL: This is a thin pale patient, in no apparent distress. TUBES/LINES/DRAINS: SKIN: No jaundice, rashes, or lesions. No needle flores Skin temperature appropriate. Not diaphoretic. HEAD: Atraumatic. Normocephalic. EYES: Pupils equal and round and reactive. Extraocular motions intact. No scleral icterus. No injection or drainage. Fundi not examined. ENT: Hearing grossly normal. Nose without bleeding or purulent drainage. Throat without visible erythema, exudates, masses, or lesions.Poor dentition NECK: Trachea midline. Supple, nontender. No palpable thyroid enlargement or nodularity. CARDIOVASCULAR: Regular rate and rhythm without murmurs, gallops, or rubs. No JVD. Peripheral pulses symmetric. RESPIRATORY/CHEST: Symmetric, unlabored respirations. Clear to auscultation. Breath sounds equal bilaterally. No wheezes, rales, or rhonchi. GASTROINTESTINAL: Abdomen soft, non-tender, nondistended. No hepato-splenomegaly , or palpable masses. No guarding. Bowel sounds present. GENITOURINARY: Without palpable bladder distension. MUSCULOSKELETAL: Extremities without clubbing, cyanosis, or edema. No joint tenderness or effusion noted. No calf tenderness. No mottling or clubbing. LYMPHATICS: No palpable cervical or supraclavicular adenopathy. NEUROLOGICAL: Awake and alert. Motor and sensory grossly within normal limits. Follows commands. Clear speech . Moves all extremities. PSYCHIATRIC: No obvious anxiety/depression. no apparent hallucinations or other psychotic thought process. Laboratory Laboratory Tests Test 07/16/17 01:38 Vancomycin Level Trough 10.5 Date/Time Source Procedure Growth Status 07/15/17 10:50 Blood Peripheral Aerobic Blood Culture - Preliminary NO GROWTH IN 1 DAY Resulted 07/15/17 10:50 Blood Peripheral Anaerobic Blood Culture - Preliminary NO GROWTH IN 1 DAY Resulted 07/13/17 12:07 Urine Clean Catch Urine Culture - Final Escherichia Coli Complete Result Diagram: 07/14/17 0455 07/13/17 0940 Imaging Last Impressions Abdomen/Pelvis CT 07/14/17 0000 Signed Impressions: Service Date/Time: July 21:30 - CONCLUSION: 1. Prominent uterus with possible endometrial thickening. If this patient is postmenopausal , postmenopausal bleeding should be ruled out. 2. Some free fluid within the cul-de-sac. 3. Splenomegaly. 4. Two low density lesions are noted within the liver parenchyma with the larger measuring 18 mm. The larger of the 2 likely represents a hepatic cyst. The smaller lesion is too small for accurate density measurements are MRI of the abdomen with contrast as an outpatient could be performed for further evaluation the smaller lesion if clinically indicated. Mario Miguel MD Chest X-Ray 07/13/17 1237 Signed Impressions: Service Date/Time: Thursday, July 13, 2017 12:38 - CONCLUSION: No acute cardiopulmonary abnormality is identified. Saleem Beckwith MD Lumbar Spine MRI 07/13/17 0000 Signed Impressions: Service Date/Time: Thursday, July 13, 2017 10:59 - CONCLUSION: 1. Mild degenerative listhesis at L3-4 secondary to facet arthropathy. 2. Minimal degenerative disc disease at L3-4 with mild annular bulging. 3. Otherwise normal unenhanced and enhanced evaluation of the lumbar spine. No evidence of osteomyelitis, destructive bone lesions, disc herniation, bony stenosis or foraminal encroachment. Narayan Rivera MD Assessment and Plan Assessment and Plan Enterobacter bactermia ? source urine does not appear to be the case Spleenomegaly H/o IVDU if repeat BC are + definetely will need LEBRON RF asses L SI rian de dios to CFTX Purnima Cordero MD Jul 16, 2017 20:14
[2017-07-16] MEDS: REMOVE OLD LIDOCAINE PATCH T-DERMAL SCH (20:35)
[2017-07-16] MEDS: cefTRIAXone INJ 2,000 MG in SODIUM CHLORIDE 0.9% INJ 100 ML IV SCH (20:46)
[2017-07-16] MEDS: NAPROXEN 250 MG TAB PO PRN (20:46)
[2017-07-17 01:02] VITALS: BP 125/82; PULSE 80; RESP 20; TEMP 98.2; O2SAT 98
[2017-07-17 06:59] LABS: AUTOMATED NEUTROPHIL # 3.4 TH/MM3 (1.8-7.7); BASOPHIL % 0.5 % (0.0-2.0); EOSINOPHIL # 0.2 TH/MM3 (0-0.4); EOSINOPHIL % 3.2 % (0.0-4.0); HEMATOCRIT 27.4 % (35.0-46.0); HEMOGLOBIN 8.5 GM/DL (11.6-15.3); LYMPH % 28.5 % (9.0-44.0); LYMPHOCYTE # 1.7 TH/MM3 (1.0-4.8); MEAN CELL VOLUME 63.3 FL (80.0-100.0); MEAN CORPUSCULAR HEMOGLOBIN 19.6 PG (27.0-34.0); MEAN PLATELET VOLUME 7.4 FL (7.0-11.0); MONO % 8.1 % (0.0-8.0); MONOCYTE # 0.5 TH/MM3 (0-0.9); NEUT % 59.7 % (16.0-70.0); PLATELET COUNT 216 TH/MM3 (150-450); RED BLOOD COUNT 4.33 MIL/MM3 (4.00-5.30); RED CELL DISTRIBUTION WIDTH 20.5 % (11.6-17.2); WHITE BLOOD COUNT 5.8 TH/MM3 (4.0-11.0)
[2017-07-17 07:50] VITALS: BP 128/88; PULSE 69; RESP 20; TEMP 97.9; O2SAT 98
[2017-07-17] MEDS: LIDOCAINE HCL 5% PATCH T-DERMAL SCH (08:23)
[2017-07-17] MEDS: NAPROXEN 250 MG TAB PO PRN (08:24)
--- NOTE | 2017-07-17 08:36 | HHI.PR ---
Subjective Remarks Patient seen and evaluated today in follow-up for bacteremia and anemia. Hemoglobin improved after transfusion. ID consult appreciated. Patient doing better but still complaining of tailbone and left-sided back pain Objective Vitals Vital Signs Date Time Temp Pulse Resp B/P (MAP) Pulse Ox O2 Delivery O2 Flow Rate FiO2 07/17/17 01:02 98.2 80 20 125/82 (96) 98 07/16/17 21:40 98.7 81 20 135/86 99 07/16/17 20:38 98.7 81 20 135/86 (102) 99 07/16/17 18:34 98.5 73 16 136/89 (105) 98 07/16/17 18:00 97.7 91 20 147/84 100 07/16/17 17:45 97.7 80 21 140/80 100 07/16/17 17:29 98.5 74 21 130/89 98 07/16/17 13:03 96.1 73 15 129/75 (93) 99 07/16/17 08:58 97.3 77 18 122/65 (84) 98 I/O 07/16/17 07/16/17 07/16/17 07/17/17 07/17/17 07/17/17 07:00 15:00 23:00 07:00 15:00 23:00 Intake Total 120 ml 2075 ml Balance 120 ml 2075 ml Intake Oral 120 ml 1300 ml IV Total 100 ml Packed Cells 400 ml Blood Product IV Normal Saline Flush 275 ml # Voids 1 4 4 # Bowel Movements 0 1 1 Result Diagram: 07/17/17 0607 07/13/17 0940 Imaging Last Impressions Abdomen/Pelvis CT 07/14/17 0000 Signed Impressions: Service Date/Time: July 21:30 - CONCLUSION: 1. Prominent uterus with possible endometrial thickening. If this patient is postmenopausal , postmenopausal bleeding should be ruled out. 2. Some free fluid within the cul-de-sac. 3. Splenomegaly. 4. Two low density lesions are noted within the liver parenchyma with the larger measuring 18 mm. The larger of the 2 likely represents a hepatic cyst. The smaller lesion is too small for accurate density measurements are MRI of the abdomen with contrast as an outpatient could be performed for further evaluation the smaller lesion if clinically indicated. Mario Miguel MD Chest X-Ray 07/13/17 1237 Signed Impressions: Service Date/Time: Thursday, July 13, 2017 12:38 - CONCLUSION: No acute cardiopulmonary abnormality is identified. Saleem Beckwith MD Lumbar Spine MRI 07/13/17 0000 Signed Impressions: Service Date/Time: Thursday, July 13, 2017 10:59 - CONCLUSION: 1. Mild degenerative listhesis at L3-4 secondary to facet arthropathy. 2. Minimal degenerative disc disease at L3-4 with mild annular bulging. 3. Otherwise normal unenhanced and enhanced evaluation of the lumbar spine. No evidence of osteomyelitis, destructive bone lesions, disc herniation, bony stenosis or foraminal encroachment. Narayan Rivera MD Objective Remarks GENERAL: This is a well-nourished, well-developed patient, in no apparent distress. CARDIOVASCULAR: Regular rate and rhythm without murmurs, gallops, or rubs. RESPIRATORY: Clear to auscultation. Breath sounds equal bilaterally. No wheezes , rales, or rhonchi. GASTROINTESTINAL: Abdomen soft, non-tender, nondistended. Normal active bowel sounds MUSCULOSKELETAL: Extremities without clubbing, cyanosis, or edema. NEURO: Alert & Oriented x4 to person, place, time, situation. Moves all ext x4 Procedures none A/P Problem List: (1) Severe sepsis ICD Code: A41.9 - Sepsis, unspecified organism; R65.20 - Severe sepsis without septic shock Status: Acute Plan: Resolving sepsis (Fever, leukocytosis) secondary to E. coli UTI and Enterobacter bacteremia ID consult appreciated Continue IV Rocephin based on current sensitivities, DC vancomycin Repeat blood cultures are pending clinically improved but still complaining of left-sided back pain. coccyx films pending Echocardiogram within normal limits (2) Menorrhagia ICD Code: N92.0 - Excessive and frequent menstruation with regular cycle Plan: Abnormal uterus on imaging, unlikely to be malignant at this point and appears to be chronic for the last 6 months, patient also with iron deficiency anemia Continue recommendation for outpatient follow-up ( A3) hemoglobin 8.5 today with symptoms of fatigue and dizziness resolved after 1 unit packed red blood cells (3) Anxiety ICD Code: F41.9 - Anxiety disorder, unspecified Plan: xanax prn Assessment and Plan lovenox Discharge Planning dc home pending repeat BC Macarena Cartagena MD Jul 17, 2017 08:36
[2017-07-17 09:50] LABS: OVALOCYTES 1+ (NORMAL); TEARDROP RBCS 1+ (NORMAL)
[2017-07-17 11:50] VITALS: BP 122/88; PULSE 72; RESP 20; TEMP 97.1; O2SAT 97
[2017-07-17] MEDS ORDERED: GADODIAMIDE PF 287 MG/ML 10 ML VIAL (for RAD MRI) IVCONTRAST ONE (11:55)
[2017-07-17] MEDS: ENOXAPARIN SODIUM 40 MG/0.4 ML SYRINGE SQ SCH (12:31)
[2017-07-17] MEDS: KETOROLAC TROMETHAMINE 30 MG/ML (IVP) VIAL IV PUSH PRN (12:34)
--- NOTE | 2017-07-17 12:45 | RADRPT ---
EXAM DATE/TIME: 07/17/2017 11:46 [place] Corrected on: July 17, 2017; [facility] COMPARISON: CT ABDOMEN & PELVIS W CONTRAST, March 01, 2014, 6:44. CT ABDOMEN & PELVIS W CONTRAST, July 14 18, 21:30. INDICATIONS : Back and leg pain. CONTRAST: 10 cc Omniscan (gadodiamide) IV MEDICAL HISTORY : None. SURGICAL HISTORY : section. ENCOUNTER: Initial ACUITY: 1 week PAIN SCORE: 5/10 LOCATION: [facility] TECHNIQUE: Multiplanar, multisequence magnetic resonance imaging of the pelvis was performed. FINDINGS: MRI of the pelvis was obtained this individual with lower back pain and left leg pain. The lower lumbar spine visualized is unremarkable. Both SI joints appear normal. 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 Pelvic contents appear unremarkable On the axial images I do not see an inflammatory changes along expected course of the lumbosacral ple xus. There is no free fluid in the abdomen. There is no adnexal mass. There is no inguinal adenopa thy. 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 SI joints are n ormal Do not see evidence of inflammatory process. Alexandro Tavarez MD FACR on July 17, 2017 at 12:40 Board Certified Radiologist. This report was verified electronically. Alexandro Tavarez MD FACR on July 17, 2017 at 12:47 Board Certified Radiologist. This report was verified electronically.
[2017-07-17 15:00] VITALS: BP 119/68; PULSE 74; RESP 20; TEMP 97.5; O2SAT 97
[2017-07-17 20:10] VITALS: BP 122/62; PULSE 64; RESP 16; TEMP 97.8; O2SAT 100
[2017-07-17] MEDS: REMOVE OLD LIDOCAINE PATCH T-DERMAL SCH (21:00)
[2017-07-17] MEDS: cefTRIAXone INJ 2,000 MG in SODIUM CHLORIDE 0.9% INJ 100 ML IV SCH (21:42)
[2017-07-18 00:01] VITALS: BP 133/68; PULSE 75; RESP 18; TEMP 98; O2SAT 100
[2017-07-18 08:00] VITALS: BP 124/72; PULSE 64; RESP 14; TEMP 97.7; O2SAT 96
[2017-07-18] MEDS: LIDOCAINE HCL 5% PATCH T-DERMAL SCH (08:38)
[2017-07-18] MEDS: ENOXAPARIN SODIUM 40 MG/0.4 ML SYRINGE SQ SCH (08:39)
[2017-07-18] MEDS: NAPROXEN 250 MG TAB PO PRN (08:42)
[2017-07-18] MEDS: NAPROXEN 500 MG TAB PO SCH ×2 (11:00→20:58)
[2017-07-18 12:00] VITALS: BP 118/66; PULSE 66; RESP 16; TEMP 97.7; O2SAT 95
--- NOTE | 2017-07-18 12:08 | HHI.PR ---
Subjective Remarks Patient seen and evaluated today in follow-up for bacteremia. Cultures remain negative at 3 days Patient's back discomfort appears to be related to avascular necrosis and osteoarthritis Objective Vitals Vital Signs Date Time Temp Pulse Resp B/P (MAP) Pulse Ox O2 Delivery O2 Flow Rate FiO2 07/18/17 08:00 97.7 64 14 124/72 (89) 96 07/18/17 04:22 07/18/17 00:01 98.0 75 18 133/68 (89) 100 07/17/17 20:10 97.8 64 16 122/62 (82) 100 07/17/17 15:00 97.5 74 20 119/68 (85) 97 I/O 07/17/17 07/17/17 07/17/17 07/18/17 07/18/17 07/18/17 07:00 15:00 23:00 07:00 15:00 23:00 Intake Total 1486 ml Output Total 1200 ml 1800 ml 300 ml Balance 286 ml -1800 ml -300 ml Intake Oral 1386 ml IV Total 100 ml Output Urine Total 1200 ml 1800 ml 300 ml # Voids 4 # Bowel Movements 1 0 Result Diagram: 07/17/17 0607 Objective Remarks GENERAL: This is a well-nourished, well-developed patient, in no apparent distress. CARDIOVASCULAR: Regular rate and rhythm without murmurs, gallops, or rubs. RESPIRATORY: Clear to auscultation. Breath sounds equal bilaterally. No wheezes , rales, or rhonchi. GASTROINTESTINAL: Abdomen soft, non-tender, nondistended. Normal active bowel sounds MUSCULOSKELETAL: Extremities without clubbing, cyanosis, or edema. NEURO: Alert & Oriented x4 to person, place, time, situation. Moves all ext x4 Procedures none A/P Problem List: (1) Severe sepsis ICD Code: A41.9 - Sepsis, unspecified organism; R65.20 - Severe sepsis without septic shock Status: Acute Plan: Resolving sepsis (Fever, leukocytosis) secondary to E. coli UTI and Enterobacter bacteremia ID consult appreciated Continue IV Rocephin based on current sensitivities Repeat blood cultures negative at 3 days Continue anti-inflammatory for inflammatory related joint pain Echocardiogram within normal limits (2) Menorrhagia ICD Code: N92.0 - Excessive and frequent menstruation with regular cycle Plan: Abnormal uterus on imaging, unlikely to be malignant at this point and appears to be chronic for the last 6 months, patient also with iron deficiency anemia Continue recommendation for outpatient follow-up ( A3) (3) Anxiety ICD Code: F41.9 - Anxiety disorder, unspecified Plan: xanax prn Assessment and Plan lovenox Discharge Planning dc home in a.m. pending ID clearance Macarena Cartagena MD Jul 18, 2017 12:08
[2017-07-18 16:00] VITALS: BP 121/74; PULSE 67; RESP 14; TEMP 96.6; O2SAT 95
[2017-07-18 20:00] VITALS: BP 109/71; PULSE 89; RESP 17; TEMP 97.4; O2SAT 98
--- NOTE | 2017-07-18 20:23 | HHI.PR ---
Addendum to Inpatient Note Additional Information seen today around 7 pm full note to follow Purnima Cordero MD Jul 18, 2017 20:23
[2017-07-18] MEDS: cefTRIAXone INJ 2,000 MG in SODIUM CHLORIDE 0.9% INJ 100 ML IV SCH (20:57)
[2017-07-18] MEDS: REMOVE OLD LIDOCAINE PATCH T-DERMAL SCH (20:59)
--- NOTE | 2017-07-18 23:51 | HHI.IDPN ---
Subjective Subjective Remarks deleayed entry pt was seen earlier today She is doing OK still cv/o L buttock paimn afebrile MRI negative for infection, nbut showed early b/l avascular necrosis Antibiotics CFTX Allergies: Coded Allergies: acetaminophen (Unverified Allergy, Severe, SWELLING, 07/13/17) propoxyphene (Unverified Allergy, Severe, SWELLING, 07/13/17) Objective . Vital Signs Date Time Temp Pulse Resp B/P (MAP) Pulse Ox O2 Delivery O2 Flow Rate FiO2 07/18/17 20:00 97.4 89 17 109/71 (84) 98 07/18/17 16:00 96.6 67 14 121/74 (90) 95 07/18/17 12:00 97.7 66 16 118/66 (83) 95 07/18/17 08:00 97.7 64 14 124/72 (89) 96 07/18/17 04:22 07/18/17 00:01 98.0 75 18 133/68 (89) 100 07/18/17 07/18/17 07/19/17 14:59 22:59 06:59 Output Total 300 ml Balance -300 ml Output Urine Total 300 ml . Laboratory Tests Test 07/17/17 06:07 White Blood Count 5.8 TH/MM3 Red Blood Count 4.33 MIL/MM3 Hemoglobin 8.5 GM/DL Hematocrit 27.4 % Mean Corpuscular Volume 63.3 FL Mean Corpuscular Hemoglobin 19.6 PG Mean Corpuscular Hemoglobin Concent 31.0 % Red Cell Distribution Width 20.5 % Platelet Count 216 TH/MM3 Mean Platelet Volume 7.4 FL Neutrophils (%) (Auto) 59.7 % Lymphocytes (%) (Auto) 28.5 % Monocytes (%) (Auto) 8.1 % Eosinophils (%) (Auto) 3.2 % Basophils (%) (Auto) 0.5 % Neutrophils # (Auto) 3.4 TH/MM3 Lymphocytes # (Auto) 1.7 TH/MM3 Monocytes # (Auto) 0.5 TH/MM3 Eosinophils # (Auto) 0.2 TH/MM3 Basophils # (Auto) 0.0 TH/MM3 CBC Comment AUTO DIFF Differential Comment AUTO DIFF CONFIRMED Tear Drop Cells 1+ Ovalocytes 1+ Imaging Last Impressions Pelvis MRI 07/17/17 0000 Signed Impressions: Service Date/Time: Monday, July 17, 2017 11:46 - CONCLUSION: MRI of the pelvis suspicious for early avascular necrosis both hips. SI joints are normal Do not see evidence of inflammatory process. Alexandro Tavarez MD FACR Abdomen/Pelvis CT 07/14/17 0000 Signed Impressions: Service Date/Time: July 21:30 - CONCLUSION: 1. Prominent uterus with possible endometrial thickening. If this patient is postmenopausal , postmenopausal bleeding should be ruled out. 2. Some free fluid within the cul-de-sac. 3. Splenomegaly. 4. Two low density lesions are noted within the liver parenchyma with the larger measuring 18 mm. The larger of the 2 likely represents a hepatic cyst. The smaller lesion is too small for accurate density measurements are MRI of the abdomen with contrast as an outpatient could be performed for further evaluation the smaller lesion if clinically indicated. Mario Miguel MD Chest X-Ray 07/13/17 1237 Signed Impressions: Service Date/Time: Thursday, July 13, 2017 12:38 - CONCLUSION: No acute cardiopulmonary abnormality is identified. Saleem Beckwith MD Lumbar Spine MRI 07/13/17 0000 Signed Impressions: Service Date/Time: Thursday, July 13, 2017 10:59 - CONCLUSION: 1. Mild degenerative listhesis at L3-4 secondary to facet arthropathy. 2. Minimal degenerative disc disease at L3-4 with mild annular bulging. 3. Otherwise normal unenhanced and enhanced evaluation of the lumbar spine. No evidence of osteomyelitis, destructive bone lesions, disc herniation, bony stenosis or foraminal encroachment. Narayan Rivera MD Physical Exam CONSTITUTIONAL/GENERAL: This is a thin pale patient, in no apparent distress. TUBES/LINES/DRAINS: SKIN: No jaundice, rashes, or lesions. No needle flores Skin temperature appropriate. Not diaphoretic. CARDIOVASCULAR: Regular rate and rhythm without murmurs, gallops, or rubs. No JVD. Peripheral pulses symmetric. RESPIRATORY/CHEST: Symmetric, unlabored respirations. Clear to auscultation. Breath sounds equal bilaterally. No wheezes, rales, or rhonchi. GASTROINTESTINAL: Abdomen soft, non-tender, nondistended. No hepato-splenomegaly , or palpable masses. No guarding. Bowel sounds present. GENITOURINARY: Without palpable bladder distension. MUSCULOSKELETAL: Extremities without clubbing, cyanosis, or edema. No joint tenderness or effusion noted. No calf tenderness. No mottling or clubbing. Mildly tender to palpation L buttock NEUROLOGICAL: Awake and alert. Motor and sensory grossly within normal limits. Follows commands. Clear speech . Moves all extremities. PSYCHIATRIC: No obvious anxiety/depression. no apparent hallucinations or other psychotic thought process. Assessment & Plan Remarks Assessment and Plan Assessment and Plan Enterobacter bactermia ? source urine does not appear to be the case Spleenomegaly H/o IVDU if repeat BC are + definetely will need LEBRON RF cont CFTX probably OK to swithc to po [place] and complete 2 weekks course Repeat blood clx 2 weeks after completed course of abx or with fever Purnima Cordero MD Jul 18, 2017 23:51
[2017-07-19] VITALS: BP 112/75; PULSE 86; RESP 18; TEMP 97.6; O2SAT 99
[2017-07-19 08:00] VITALS: BP 115/90; PULSE 87; RESP 18; TEMP 97.6; O2SAT 97
[2017-07-19] MEDS: ENOXAPARIN SODIUM 40 MG/0.4 ML SYRINGE SQ SCH (08:39)
[2017-07-19] MEDS: NAPROXEN 500 MG TAB PO SCH (08:39)
[2017-07-19] MEDS: LIDOCAINE HCL 5% PATCH T-DERMAL SCH (08:41)
[2017-07-19] MEDS ORDERED: WALKER WHEELS/F1 MIS (11:42)
[2017-07-19] MEDS ORDERED: NAPR500 PO (11:42)
[2017-07-19] MEDS ORDERED: TYLETAB34 PO (11:42)
--- NOTE | 2017-07-19 11:43 | HHI.DCPOC ---
Discharge Care Plan Diagnosis: (1) Avascular necrosis (2) Joint ache (3) Severe sepsis Goals to Promote Your Health * To prevent worsening of your condition and complications * To maintain your health at the optimal level Directions to Meet Your Goals Take your medications as prescribed Follow your dietary instruction Follow activity as directed Keep your appointments as scheduled Take your immunizations and boosters as scheduled If your symptoms worsen call your PCP, if no PCP go to Urgent Care Center or Emergency Room Smoking is Dangerous to Your Health. Avoid second hand smoke Call the 24-hour hour crisis hotline for domestic abuse at Macarena Cartagena MD Jul 19, 2017 11:43
[2017-07-19] MEDS ORDERED: LEVO500T8 PO (11:44)
--- NOTE | 2017-07-19 11:51 | HHI.DS ---
Discharge Summary Admission Date Jul 13, 2017 at 16:10 Discharge Date: Jul 19, 2017 Admitting Diagnosis SEPSIS (1) Severe sepsis ICD Code: A41.9 - Sepsis, unspecified organism; R65.20 - Severe sepsis without septic shock Status: Acute (2) Menorrhagia ICD Code: N92.0 - Excessive and frequent menstruation with regular cycle (3) Anxiety ICD Code: F41.9 - Anxiety disorder, unspecified Procedures none Brief History - From Admission 52-year-old white female being admitted for possible sepsis Patient was in usual state of health until 2 days ago when she was unloading her current house when she began experiencing left-sided back pain with a gradual onset. The pain worsened over time and is now become quite unbearable. She has trouble walking due to the pain. Says the pain goes down to her knee. Denies any trouble urinating or defecating. Her friend has given her for Goody powders over 4 days as well as Excedrin and ibuprofen to minimal avail. Patient claims that she has been trying conservative measures including ice and heat. The patient does admit that she did have a friend come over and she used illicit drugs, namely cocaine. In the emergency department she was found to have a white count of 12 and tachycardic. Lumbar MRI was performed in the ER which does not show any discitis or any acutely herniating disc. CBC/BMP: 07/17/17 0607 Significant Findings Laboratory Tests Test 07/17/17 06:07 Hemoglobin 8.5 GM/DL (11.6-15.3) Hematocrit 27.4 % (35.0-46.0) Mean Corpuscular Volume 63.3 FL (80.0-100.0) Mean Corpuscular Hemoglobin 19.6 PG (27.0-34.0) Mean Corpuscular Hemoglobin Concent 31.0 % (32.0-36.0) Red Cell Distribution Width 20.5 % (11.6-17.2) Monocytes (%) (Auto) 8.1 % (0.0-8.0) Tear Drop Cells 1+ (NORMAL) Ovalocytes 1+ (NORMAL) Imaging Last Impressions Pelvis MRI 07/17/17 0000 Signed Impressions: Service Date/Time: Monday, July 17, 2017 11:46 - CONCLUSION: MRI of the pelvis suspicious for early avascular necrosis both hips. SI joints are normal Do not see evidence of inflammatory process. Alexandro Tavarez MD FACR Abdomen/Pelvis CT 07/14/17 0000 Signed Impressions: Service Date/Time: July 21:30 - CONCLUSION: 1. Prominent uterus with possible endometrial thickening. If this patient is postmenopausal , postmenopausal bleeding should be ruled out. 2. Some free fluid within the cul-de-sac. 3. Splenomegaly. 4. Two low density lesions are noted within the liver parenchyma with the larger measuring 18 mm. The larger of the 2 likely represents a hepatic cyst. The smaller lesion is too small for accurate density measurements are MRI of the abdomen with contrast as an outpatient could be performed for further evaluation the smaller lesion if clinically indicated. Mario Miguel MD Chest X-Ray 07/13/17 1237 Signed Impressions: Service Date/Time: Thursday, July 13, 2017 12:38 - CONCLUSION: No acute cardiopulmonary abnormality is identified. Saleem Beckwith MD Lumbar Spine MRI 07/13/17 0000 Signed Impressions: Service Date/Time: Thursday, July 13, 2017 10:59 - CONCLUSION: 1. Mild degenerative listhesis at L3-4 secondary to facet arthropathy. 2. Minimal degenerative disc disease at L3-4 with mild annular bulging. 3. Otherwise normal unenhanced and enhanced evaluation of the lumbar spine. No evidence of osteomyelitis, destructive bone lesions, disc herniation, bony stenosis or foraminal encroachment. Narayan Rivera MD PE at Discharge GENERAL: This is a well-nourished, well-developed patient, in no apparent distress. CARDIOVASCULAR: Regular rate and rhythm without murmurs, gallops, or rubs. RESPIRATORY: Clear to auscultation. Breath sounds equal bilaterally. No wheezes , rales, or rhonchi. GASTROINTESTINAL: Abdomen soft, non-tender, nondistended. Normal active bowel sounds MUSCULOSKELETAL: Extremities without clubbing, cyanosis, or edema. NEURO: Alert & Oriented x4 to person, place, time, situation. Moves all ext x4 Hospital Course This patient is a 52-year-old female who was admitted to the hospital with sepsis and had a urinary tract infection. The patient did have bacteremia also. Her urine cultures did grow out Escherichia coli and her blood cultures grew out Enterobacter cloacae. Patient continued with antibiotics and was seen by infectious disease. Repeat in blood cultures were negative. Patient continued to improve. Her sepsis resolved. She did have some hip and back pain which appears to be related to avascular necrosis. She was given Tylenol and oral antibiotics were started. She also continued to improve with physical therapy. Her recommendations are for outpatient blood cultures to be repeated 2 weeks or if she has a fever throughout her oral course. Patient expressed understanding Pt Condition on Discharge: Good Discharge Disposition: Discharge Home Discharge Time: <= 30 minutes Discharge Instructions DIET: Follow Instructions for: As Tolerated, No Restrictions Activities you can perform: Regular-No Restrictions Follow up Referrals: PCP Follow-up - 2 Weeks New Orders: BLOOD CULTURE - 2 Weeks New Medications: Acetaminophen-Codeine (Tylenol-Codeine #3) 300-30 mg Tab 1 TAB PO Q4H PRN for PAIN, #30 TAB 0 Refills Levofloxacin (Levofloxacin) 500 Mg Tablet 500 MG PO DAILY for Infection, #14 TAB 0 Refills Walker with Front Wheels (Walker with Front Wheels) 1 Mis Mis EA .XX DIRECTED, #1 0 Refills Naproxen (Naprosyn) 500 Mg Tab 500 MG PO Q12HR for Inflammation, #62 TAB Discontinued Medications: Levofloxacin (Levaquin 750 Mg Tab) 750 Mg Tab 750 MG PO DAILY for sepsis, pyelonephritis for 14 Days, TAB Macarena Cartagena MD Jul 19, 2017 11:51
[2017-07-19 12:00] VITALS: BP 110/60; PULSE 82; RESP 16; TEMP 97.2; O2SAT 96
== END 2017-07-19 14:35 | disposition home or self-care (01) | DRG 872 ==
LOC: PHED 08:44 → PHEDA 13:08 → PH3B 13:48 → OBSVTOIN 16:10
PROVIDERS: ADMIT Hospitalist; ATTEND Hospitalist
DX: A41.51 Sepsis due to Escherichia coli [E. coli] (principal); N39.0 Urinary tract infection, site not specified; M87.852 Other osteonecrosis, left femur; M87.851 Other osteonecrosis, right femur; D50.0 Iron deficiency anemia secondary to blood loss (chronic); F19.90 Other psychoactive substance use, unspecified, uncomplicated; A41.4 Sepsis due to anaerobes; R16.1 Splenomegaly, not elsewhere classified; R65.20 Severe sepsis without septic shock; N92.0 Excessive and frequent menstruation with regular cycle; F32.9 Major depressive disorder, single episode, unspecified; F43.10 Post-traumatic stress disorder, unspecified; Z88.6 Allergy status to analgesic agent
CPT/HCPCS: 36430; 71045; 72158; 72197; 74177; 76937; 80053; 80202; 80307; 81001; 83735; 84075; 84702; 85025; 85610; 85652; 85730; 86140; 86850; 86900; 86901; 86920; 87040; 87077; 87086; 87186; 87205; 93005; 93306; 96361; 96374; 96375; 96376; A9579; J0696; J1100; J1170; J1650; J1885; J2405; J2543; J3370; J7030; J7050; P9016; Q9963; Q9967